=== PATIENT | male | born 1995 | race Caucasian/White ===

== ENCOUNTER 2022-08-03 14:04 | Outpatient (CLI) | payer OTHER ==
--- NOTE | 2022-08-03 15:57 | MRI Report ---
PROCEDURE: ELBOW WO - RT INDICATIONS: RIGHT ELBOW PAIN TECHNIQUE: Noncontrast coronal proton density fast spin echo and T2 fast spin echo with fat saturation, axial an d sagittal T1 spin echo and T2 fast spin echo with fat saturation through the elbow. COMPARISON: Elbow radiograph dated 06/26/2022. FINDINGS: Image quality: Excellent. Lateral structures: The lateral ulnar collateral ligament and radial collateral ligament both appear mildly thickened. The overlying common extensor tendon also appears thickened. Medial structures: The ulnar collateral ligament appears intact. The overlying common flexor tendon appears normal. The ulnar nerve appears normal in size and signal within the cubital tunnel. Anterior structures: The biceps and brachialis tendons both appear intact as they insert onto the pr oximal radius and ulna, respectively. No bicipitoradial bursal fluid. The median and radial neurova scular bundles appear normal; no focal muscle atrophy to suggest nerve impingement. Posterior structures: Mild distal triceps tendinosis at its proximal olecranon insertion is seen. No olecranon bursal fluid. Bone and cartilage: No bone marrow contusions or fractures. No osteochondral injuries. IMPRESSION: 1. No marrow edema. No fracture or dislocation. No osteochondral injuries. 2. Suggestion of mild lateral epicondylitis with sprain involving lateral collateral ligaments and te ndinosis involving overlying common extensor tendon origin. 3. Mild distal triceps tendinosis at its proximal and coronal insertion. Guillermo Reviewed by: Keith Magallanes MD on 08/03/2022 3:56 PM PDT Approved by: Keith Magallanes MD on 08/03/2022 3:56 PM PDT Station ID: [id number]
== END 2022-08-03 14:05 | disposition home or self-care (01) ==
LOC: DI 14:04
PROVIDERS: ATTEND Nurse Practitioner Family
DX: M25.521 Pain in right elbow (principal); M67.823 Other specified disorders of tendon, right elbow

== ENCOUNTER 2023-08-10 10:45 | Outpatient (CLI) | payer OTHER ==
[2023-08-10 17:46] LABS: BASOPHILS % (AUTO) 0.2 %; EOSINOPHILS # (AUTO) 0.1 10^3/uL (0.0-0.7); EOSINOPHILS % (AUTO) 2.1 %; HGB - HEMOGLOBIN 14.7 g/dL (14.0-18.0); LYMPHOCYTES # (AUTO) 2.6 10^3/uL (1.5-3.5); LYMPHOCYTES % (AUTO) 42.3 %; MEAN CORPUSCULAR HEMOGLOBIN 31.8 pg (27.0-31.0); MEAN CORPUSCULAR HGB CONC 34.2 g/dL (32.0-36.0); MEAN CORPUSCULAR VOLUME 93.1 fL (80.0-94.0); MONOCYTES # (AUTO) 0.6 10^3/uL (0.0-1.0); MONOCYTES % (AUTO) 8.8 %; NEUTROPHILS # (AUTO) 2.9 10^3/uL (1.5-6.6); NEUTROPHILS % (AUTO) 46.4 %; PLT - PLATELET COUNT 250 10^3/uL (130-450); RED BLOOD COUNT 4.62 10^6/uL (4.70-6.10); RED CELL DISTRIBUTION WIDTH 12.7 % (12.0-15.0); WHITE BLOOD COUNT 6.2 x10^3/uL (4.8-10.8)
[2023-08-10 17:55] LABS: BILIRUBIN,URINE NEGATIVE (NEGATIVE); GLUCOSE, URINE (UA) NEGATIVE (NEGATIVE); KETONES,URINE (UA) NEGATIVE (NEGATIVE); LEUKOCYTE ESTERASE, URINE NEGATIVE (NEGATIVE); NITRITE,URINE NEGATIVE (NEGATIVE); OCCULT BLOOD,URINE NEGATIVE (NEGATIVE); PROTEIN,URINE NEGATIVE (NEGATIVE); UROBILINOGEN,URINE 1 (NORMAL) E.U./dL (NORMAL)
[2023-08-10 17:59] LABS: CLARITY,URINE CLEAR (CLEAR)
[2023-08-10 18:04] LABS: ALBUMIN 5.1 g/dL (3.2-5.5); ALBUMIN/GLOBULIN RATIO 2.2 (1.0-2.2); BILIRUBIN,TOTAL 0.6 mg/dL (0.2-1.0); CALCIUM 10.2 mg/dL (8.5-10.3); CREATININE 0.7 mg/dL (0.6-1.3); POTASSIUM 3.8 mmol/L (3.5-4.5); TOTAL PROTEIN 7.4 g/dL (6.4-8.9)
[2023-08-10 18:09] LABS: AMORPHOUS SEDIMENT,UR Few /LPF; BACTERIA,URINE Rare /HPF (None Seen); MUCUS,URINE Few Strands; RBC,URINE None Seen /HPF (0-5); SQUAMOUS EPITHELIAL CELL,UR RARE Squamous (<= Few); WBC,URINE 0-3 /HPF (0-3)
== END 2023-08-10 11:00 | disposition home or self-care (01) ==
LOC: LAB.N 10:45
PROVIDERS: ATTEND Specialist
DX: R10.9 Unspecified abdominal pain (principal)
CPT/HCPCS: 36415; 80053; 81001; 82150; 83690; 85025; 87086

== ENCOUNTER 2023-11-02 07:57 | Outpatient (CLI) | payer OTHER ==
--- NOTE | 2023-11-02 09:32 | Ultrasound Report ---
PROCEDURE: Testicle INDICATIONS: ATROPHY OF TESTIS TECHNIQUE: Real-time scanning was performed of the scrotum and testicles, with image documentation. Color and p ulse Doppler interrogation was performed of both testicles. COMPARISON: None. FINDINGS: Right: The testis measures 3.1 x 1.3 x 2.4 cm for a total volume of 6.9 cc, and homogenous in echotex ture. Multiple, punctate echogenic calcifications are present within the testicular parenchyma. Epidi dymis is normal in overall size and morphology. No hydrocele. No varicoceles. Overlying scrotal ski n is normal in thickness. Left: Testis measures 2.9 x 1.2 x 1.5 cm for a total volume of 3.7 cc, and homogeneous in echotexture . Multiple, punctate echogenic calcifications are present within the testicular parenchyma. Epididym is is normal in overall size and morphology. No hydrocele. No varicoceles. Overlying scrotal skin i s normal in thickness. Doppler: Color and pulse Doppler demonstrate normal and symmetric arterial flow in both testicles. Other: The left testis demonstrates reducible herniation into the pelvic cavity via the inguinal kristie l with Valsalva maneuver. IMPRESSION: Bilateral testicular atrophy with microlithiasis. Urologic referral recommended for further evaluatio n. Reviewed by: Darius Go MD on 11/02/2023 9:31 AM PDT Approved by: Darius Go MD on 11/02/2023 9:31 AM PDT Station ID: [id number]
== END 2023-11-02 07:58 | disposition home or self-care (01) ==
LOC: DI 07:57
PROVIDERS: ATTEND Family Medicine
DX: N50.0 Atrophy of testis (principal); N50.89 Other specified disorders of the male genital organs